=== PATIENT | female | born 1960 | race Caucasian/White ===

== ENCOUNTER 2016-07-03 18:39 | Emergency (ER) | payer OTHER ==
[2016-07-03 18:43] VITALS: BP 140/85; PULSE 89; TEMP 97.8; BMI 27.4
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
[2016-07-03] MEDS ORDERED: KETOROLAC TROMETHAMINE 30 MG/1 ML VIAL IM ONE (20:36)
[2016-07-03] MEDS ORDERED: KETOROLAC TROMETHAMINE 30 MG/1 ML VIAL ONE (21:08)
== END 2016-07-03 22:40 | disposition home or self-care (01) ==
LOC: JERFT 18:39
PROC: 3E0233Z Introduction of Anti-inflammatory into Muscle, Percutaneous Approach (ICD-10-PCS; principal; 2016-07-03)
DX: M54.5 Low back pain (principal); M54.2 Cervicalgia; M25.561 Pain in right knee; V43.62XA Car passenger injured in collision with other type car in traffic accident, initial encounter; Y92.414 Local residential or business street as the place of occurrence of the external cause; Y93.89 Activity, other specified; Y99.8 Other external cause status
CPT/HCPCS: 72050-TC; 72100-TC; 73562-TC-RT; 99281-25